=== PATIENT | male | born 1990 | race Two or more races ===

== ENCOUNTER 2024-02-21 15:08 | Inpatient (IN) | payer MEDICAID, OTHER ==
[~2024-02-21] VITALS: Ht 170.2 cm; Wt 112.0 kg
--- NOTE | 2024-02-21 15:46 | ED.PDOC ---
History of Present Illness HPI Comments 33-year-old male brought in by private car after a reported possible syncopal episode. Patient states he has does not recall the event, however was at [employer] when he lost consciousness, then woke up on the floor. Noted is a bite wound on the left lateral aspect of his tongue. He denies any current dizziness, vision changes or focal weakness. He states he does feel shaky, and states he can not completely recall the last 2 days. He admits to typically drinking 2 tall cans and a few shots of alcohol every day. He is currently staying at a [facility] where they do not drink alcohol. He is not sure when he last drank alcohol. He denies any other injury from the fall. Chief Complaint: Withdrawal Time Seen by MD: 15:27 Primary Care Provider: none Allergies: Coded Allergies: NO KNOWN ALLERGIES (Unverified , 02/21/24) Mode of Arrival: Ambulatory Past Medical History PAST MEDICAL HISTORY: Asthma Surgical History (Other): Right knee Family History Family History: Reviewed,noncontributory to illness Social History Smoker: Non-Smoker Alcohol: Heavy Drugs: Denies Drug Use Lives In: Home All Other Systems: Reviewed and Negative (Comprehensive systems review obtained and negative except for what is stated in the HPI.) Physical Exam General Appearance: No Apparent Distress HEENT: PERRL/EOMI, Other (Irregular superficial left tongue bite wound) Neck: Full Range of Motion, Non-Tender, Normal Inspection, Supple Respiratory: Lungs Clear, No Accessory Muscle Use, No Respiratory Distress, Normal Breath Sounds Cardiovascular: No Edema, No JVD, Tachycardia Breast Exam: Deferred Gastrointestinal: Non Tender, Soft Genitalia: Deferred Pelvic: Deferred Rectal: Deferred Extremities: Normal inspection, Normal range of motion, Non-tender, No pedal edema Neurologic: Alert (Oriented x4), Normal Affect, Normal Mood, Other (Ambulatory without difficulty. No gross focal deficit. Appears tremulous.) Cerebellar Function: NOT DONE Reflexes: NOT DONE Skin: Dry, Normal Color, Warm Lymphatic: NOT DONE Was a procedure done? Was a procedure done?: No EKG EKG : Comments Sinus rhythm, rate 84, normal intervals, normal axis, incomplete right bundle- branch block, no ST/T changes. Differential Dx Considerations may include: Syncope, seizure, alcohol withdrawal, electrolyte imbalance, hypovolemia, CVA, TIA, intracranial hemorrhage, skull fracture, drug/alcohol intoxication, among others X-Ray, Labs, Meds, VS Vital Signs Date Time Temp Pulse Resp B/P (MAP) Pulse Ox O2 Delivery O2 Flow Rate FiO2 02/21/24 21:18 84 02/21/24 19:30 90 18 97 Room Air* 0 21 02/21/24 19:30 98.1 90 18 120/79 (93) 97 98.1 02/21/24 16:07 91 16 101/70 (80) 98 02/21/24 15:58 91 16 99 Room Air* 0 21 02/21/24 15:29 98.0 122 22 122/92 (102) 94 Lab Test 02/21/24 17:40 02/21/24 16:50 02/21/24 15:50 02/21/24 15:24 Range/Units Urine Color Yellow Yellow Urine Clarity Clear Clear Urine pH 6.0 5.0-9.0 Urine Specific [place] 1.015 1.001-1.035 Urine Protein 1+ H Negative Urine Ketones 1+ H Negative Urine Blood 1+ H Negative /uL Urine Nitrite Negative Negative Urine Bilirubin Negative Negative Urine Urobilinogen Normal Negative mg/dL Urine Leukocyte Esterase Negative Negative /uL Urine RBC 2 0 - 3 /hpf Urine WBC 1 0 - 3 /hpf Urine Squamous Epithelial Cells Few <5 /hpf Urine Bacteria None seen None Seen /hpf Urine Hyaline Casts Few 0 - 2 /lpf Urine Mucus Few None Seen Urine Glucose Normal Normal mg/dL Urine Opiates Screen Neg NEGATIVE Urine Fentanyl Screen Neg NEGATIVE Urine Barbiturates Screen Neg NEGATIVE Urine Phencyclidine Screen Neg NEGATIVE Urine Amphetamines Screen Neg NEGATIVE Urine Benzodiazepines Screen Neg NEGATIVE Urine Cocaine Screen Neg NEGATIVE Urine Cannabinoids Screen Neg NEGATIVE Troponin I High Sensitivity 47 36 </=54 ng/L White Blood Count 7.0 4.4-10.8 10^3/uL Red Blood Count 4.93 4.5-5.90 10^6/uL Hemoglobin 16.2 13.5-17.5 g/dL Hematocrit 45.8 41.0-53.0 % Mean Corpuscular Volume 92.9 80.0-100.0 fL Mean Corpuscular Hemoglobin 32.9 H 28.0-32.0 pg Mean Corpuscular Hemoglobin Concent 35.4 32.0-36.0 g/dL Red Cell Distribution Width 14.3 11.8-14.3 % Platelet Count 116 L 140-450 10^3/uL Mean Platelet Volume 7.6 6.9-10.8 fL Neutrophils (%) (Auto) 83.4 H 37.0-80.0 % Lymphocytes (%) (Auto) 7.8 L 10.0-50.0 % Monocytes (%) (Auto) 8.5 0.0-12.0 % Eosinophils (%) (Auto) 0.2 0.0-7.0 % Basophils (%) (Auto) 0.1 0.0-2.0 % Neutrophils # (Auto) 5.9 1.6-8.6 10 ^3/uL Lymphocytes # (Auto) 0.5 0.4-5.4 10 ^3/uL Monocytes # (Auto) 0.6 0-1.3 10 ^3/uL Eosinophils # (Auto) 0 0-0.8 10 ^3/uL Basophils # (Auto) 0 0-0.2 10 ^3/uL Nucleated Red Blood Cells 0.2 % Sodium Level 131 L 136-145 mmol/L Potassium Level 3.8 3.5-5.1 mmol/L Chloride Level 96 L 98-107 mmol/L Carbon Dioxide Level 24 20-31 mmol/L Anion Gap 11 5-15 Blood Urea Nitrogen 15 9-23 mg/dL Creatinine 1.07 0.700-1.30 mg/dL Glomerular Filtration Rate Calc 93 >90 mL/min BUN/Creatinine Ratio 14.0 10.0-20.0 Serum Glucose 115 H 74-106 mg/dL Calcium Level 10.8 H 8.7-10.4 mg/dL Plasma/Serum Blood Alcohol 5.1 <10 mg/dL POC Glucose 178 H 70-106 mg/dl Current Medications Medications (Trade) Dose Ordered Sig/Nisha Route Start Time Stop Time Status Last Admin Sodium Chloride 1,000 ml @ 1,000 mls/hr Q1H ONCE IV 02/21/24 15:30 02/21/24 16:29 DC 02/21/24 15:53 Lorazepam (Ativan Inj) 2 mg ONCE ONCE IV 02/21/24 15:30 02/21/24 15:50 DC 02/21/24 15:52 Chlordiazepoxide HCl (Librium Capsule) 50 mg ONCE ONCE PO 02/21/24 15:30 02/21/24 15:50 DC 02/21/24 15:52 Acetaminophen/ Hydrocodone Bitart ([place] 5/325MG Tab) 1 tab ONCE ONCE PO 02/21/24 15:30 02/21/24 15:50 DC 02/21/24 15:52 Folic Acid 1 mg/ Multivitamins 10 ml/Magnesium Sulfate 8 meq/ Thiamine HCl 100 mg/Dextrose 1,013.2 ml @ 500.001 mls/hr O ONCE INJ 02/21/24 15:30 02/21/24 17:31 DC 02/21/24 17:05 [place] [id number] Ph: [phone] DIAGNOSTIC IMAGING Diagnostic Imaging Report : [id number] Signed PATIENT: DENISE CLIFFORDCCT: [id number] UNIT: [id number] : 1990 LOC: ER ROOM / BED: / AGE / SEX: 33 / M ADM STATUS: REG ER SERVICE [id number] ORDERING PHYSICIAN: SHELLI SOLITARIO MD PROCEDURE(s): HWOCT - HEAD WITHOUT CONTRAST REASON: syncope vs sz ORDER NUMBER(s): [id number], ACCESSION NUMBER(s): [id number] EXAM: CT HEAD WITHOUT CONTRAST INDICATION: syncope vs sz TECHNIQUE: CT of the head without intravenous contrast. Radiation Dose Information: CT Dose: CTDI volume is 25 mGy. Dose-length product is 250 mGy*cm The dose indicators for CT are the volume Computed Tomography (CT) Dose Index (CTDIvol) and the Dose Length Product (DLP), and are measured in units of mGy and mGy-cm, respectively. These indicators are not patient dose, but values generated from the CT scanner acquisition factors. The report includes radiation exposure data for exposures received during this examination. COMPARISON: None FINDINGS: There is no evidence of acute intracranial hemorrhage, extra-axial collection, mass effect, midline shift, herniation or hydrocephalus. The ventricles, sulci and cisterns are age appropriate. The sue-white differentiation is intact. Patchy periventricular and subcortical white matter hypoattenuation is nonspecific but may be related to small vessel ischemic disease. The visualized paranasal sinuses and mastoid air cells are clear. The surrounding soft tissues and osseous structures are unremarkable. IMPRESSION: No acute intracranial abnormality. ATED BY: JONNY BAIN MD DICTATED DATE/TIME: 02/21/241600 SIGNED BY: JONNY BAIN MD SIGNED DATE/TIME: 02/21/241600 CC: [place] [address] Ph: [phone] DIAGNOSTIC IMAGING Diagnostic Imaging Report : [id number] Signed PATIENT: DENISE CLIFFORDCCT: [id number] UNIT: [id number] : 1990 LOC: ER ROOM / BED: / AGE / SEX: 33 / M ADM STATUS: REG ER SERVICE [id number] ORDERING PHYSICIAN: SHELLI SOLITARIO MD PROCEDURE(s): FAC2C - MAXILLOFACIAL WITHOUT REASON: FALL ORDER NUMBER(s): [id number], ACCESSION NUMBER(s): [id number] CT MAXILLOFACIAL WITHOUT INDICATION: FALL EXAM DATE: 02/21/2024 03:38 PM COMPARISON: None RADIATION DOSE: CTDIvol: 56 mGy, DLP: 910 mGy*cm PROCEDURE: Using the CT scanner, contiguous noncontrast scans were obtained from above the orbital rims to below the mandible. Coronal and sagittal reformatted images were then generated. All CT scans at this medical facility are performed using dose modulation techniques as appropriate to a performed exam including the following: Automated exposure control was utilized; adjustment of the MA and/or KV according to patient size; and use of iterative reconstruction technique. FINDINGS: The facial bones, including the orbits and paranasal sinuses are intact without evidence of fracture. Right maxillary sinus mucosal thickening. The paranasal sinuses, mastoid air cells and middle ear cavities are aerated. The orbital contents are normal. The soft tissues of the face are unremarkable. IMPRESSION: Right maxillary sinus mucosal thickening. No acute fracture of the maxillofacial region. ATED BY: RENAN MACKEY MD DICTATED DATE/TIME: 02/21/241604 SIGNED BY: RENAN MACKEY MD SIGNED DATE/TIME: 02/21/241604 CC: X-Ray, Labs, Meds, VS Comment 33-year-old male with a history of asthma and alcohol dependence presenting with a possible syncopal episode versus seizure. Vitals remarkable for heart rate 122, respiratory rate 22, BP 122/92 Exam remarkable for left tongue superficial irregular bite wound and tremulousness Rhythm strip independently interpreted by me: Sinus tach, rate 122, no ectopy. CT head unremarkable CT maxillofacial no acute fracture CBC remarkable for platelets 116, basic metabolic panel remarkable for sodium 131, chloride 96, troponin negative x2, alcohol 5.1, drug screen pending Patient treated with the following in the ED: 1 L 0.9 normal saline IV bolus, banana bag IV, Ativan 2 mg IV, Librium 50 mg p.o. On re-evaluation, patient is no longer tremulous. Heart rate has improved, other vitals are stable. He is not in distress and is neurologically intact. Plan is to admit the patient for treatment of alcohol withdrawal. Time of 1ST Reevaluation: 18:21 Reevaluation 1ST: Improved Patient Education/Counseling: Diagnosis, Treatment Family Education/Counseling: No Family Present Departure 1 Departure Time of Disposition: 18:21 Impression: Primary Impression: Alcohol withdrawal seizure Qualified Codes: F10.939 - Alcohol use, unspecified with withdrawal, unspe cified; R56.9 - Unspecified convulsions Disposition: 09 ADMITTED INPATIENT Admit to: Tele Condition: Guarded Critical Care Note Critical Care Time?: Yes (35 min-critical care time only) Critical care comment: Critical care time including multiple bedside re-evaluations, review of lab and imaging studies, and discussion of the case with the admitting provider. Patient is high risk for neurologic decompensation. Stability Stability form required: No Heart Score Heart Score: Heart Score Response (Comments) Value History N/A 0 EKG N/A 0 Age N/A 0 Risk Factors N/A 0 Troponin N/A 0 Total 0 I personally scribed for SHELLI SOLITARIO MD ([email or web address]) on 02/21/24 at 16:10. Electronically submitted by Velma Godoy ([email or web address]). I personally scribed for SHELLI SOLITARIO MD ([email or web address]) on 02/21/24 at 16:11. Electronically submitted by Velma Godoy ([email or web address]). SHELLI SOLITARIO MD Feb 21, 2024 15:46
[2024-02-21] MEDS: HYDROcodone-ACET 5/325MG TAB PO ONE (15:52)
[2024-02-21] MEDS: chlordiazePOXIDE HCL 25 MG CAP PO ONE (15:52)
[2024-02-21] MEDS: LORazepam 2MG/ML-1ML VIAL IV ONE (15:52)
[2024-02-21] MEDS: SODIUM CHLORIDE 0.9% 1,000 ML IV ONE (15:53)
[2024-02-21 15:58] VITALS: PULSE 91; RESP 16; O2SAT 99
--- NOTE | 2024-02-21 16:03 | DVH ---
EXAM: CT HEAD WITHOUT CONTRAST INDICATION: syncope vs sz TECHNIQUE: CT of the head without intravenous contrast. Radiation Dose Information: CT Dose: CTDI volume is 25 mGy. Dose-length product is 250 mGy*cm The dose indicators for CT are the volume Computed Tomography (CT) Dose Index (CTDIvol) and the Dose Length Product (DLP), and are measured in units of mGy and mGy-cm, respectively. These indicators are not patient dose, but values generated from the CT scanner acquisition factors. The report includes radiation exposure data for exposures received during this examination. COMPARISON: None FINDINGS: There is no evidence of acute intracranial hemorrhage, extra-axial collection, mass effect, midline s hift, herniation or hydrocephalus. The ventricles, sulci and cisterns are age appropriate. The sue-white differentiation is intact. Patchy periventricular and subcortical white matter hypoattenuation is nonspecific but may be related to small vessel ischemic disease. The visualized paranasal sinuses and mastoid air cells are clear. The surrounding soft tissues and osseous structures are unremarkable. IMPRESSION: No acute intracranial abnormality.
--- NOTE | 2024-02-21 16:08 | DVH ---
CT MAXILLOFACIAL WITHOUT INDICATION: FALL EXAM DATE: 02/21/2024 03:38 PM COMPARISON: None RADIATION DOSE: CTDIvol: 56 mGy, DLP: 910 mGy*cm PROCEDURE: Using the CT scanner, contiguous noncontrast scans were obtained from above the orbital ri ms to below the mandible. Coronal and sagittal reformatted images were then generated. All CT scans at this medical facility are performed using dose modulation techniques as appropriate t o a performed exam including the following: Automated exposure control was utilized; adjustment of th e MA and/or KV according to patient size; and use of iterative reconstruction technique. FINDINGS: The facial bones, including the orbits and paranasal sinuses are intact without evidence of fracture. Right maxillary sinus mucosal thickening. The paranasal sinuses, mastoid air cells and mid dle ear cavities are aerated. The orbital contents are normal. The soft tissues of the face are unre markable. IMPRESSION: Right maxillary sinus mucosal thickening. No acute fracture of the maxillofacial region.
[2024-02-21 16:27] LABS: Basophils # (auto) 0 10 ^3/uL (0-0.2); Basophils % (auto) 0.1 % (0.0-2.0); Eosinophils # (auto) 0 10 ^3/uL (0-0.8); Eosinophils % (auto) 0.2 % (0.0-7.0); Hematocrit 45.8 % (41.0-53.0); Hemoglobin 16.2 g/dL (13.5-17.5); Lymphocytes # (auto) 0.5 10 ^3/uL (0.4-5.4); Lymphocytes % (auto) 7.8 % (10.0-50.0); Mean Corpuscular Hemoglobin 32.9 pg (28.0-32.0); Mean Corpuscular Hgb Conc. 35.4 g/dL (32.0-36.0); Mean Corpuscular Volume 92.9 fL (80.0-100.0); Monocytes # (auto) 0.6 10 ^3/uL (0-1.3); Monocytes % (auto) 8.5 % (0.0-12.0); Neutrophils # (auto) 5.9 10 ^3/uL (1.6-8.6); Neutrophils % (auto) 83.4 % (37.0-80.0); Nucleated Red Blood Cells % 0.2 %; Platelet Count (auto) 116 10^3/uL (140-450); Red Blood Cells 4.93 10^6/uL (4.5-5.90); Red Cell Distribution Width 14.3 % (11.8-14.3)
[2024-02-21 16:30] LABS: Potassium 3.8 mmol/L (3.5-5.1)
[2024-02-21 16:31] LABS: Anion Gap 11 (5-15); Carbon Dioxide 24 mmol/L (20-31)
[2024-02-21 16:37] LABS: Blood Urea Nitrogen 15 mg/dL (9-23); Calcium 10.8 mg/dL (8.7-10.4); Chloride 96 mmol/L (98-107); Glucose 115 mg/dL (74-106); Sodium 131 mmol/L (136-145)
[2024-02-21] MEDS: FOLIC ACID 1 MG, MULTIPLE VITAMIN 10 ML, MAGNESIUM SULF SDV 50% 8 MEQ, THIAMINE INJ 100... INJ ONE (17:05)
[2024-02-21 19:30] VITALS: PULSE 90; RESP 18; O2SAT 97
[2024-02-21 19:45] LABS: Urine Bacteria None Seen /hpf (None Seen)
[2024-02-21 20:35] LABS: Benzodiazephine Screen, Urine Neg (NEGATIVE)
[2024-02-21 20:36] LABS: Opiate Scree,Urine Neg (NEGATIVE)
[2024-02-21 20:39] LABS: Amphetamine Screen, Urine Neg (NEGATIVE); Barbiturate Scree,Urine Neg (NEGATIVE); Cannabinoid Screen, Urine Neg (NEGATIVE); Cocaine Screen, Urine Neg (NEGATIVE); Phencyclidine Screen, Urine Neg (NEGATIVE)
[2024-02-21 20:40] LABS: Urine Blood 1+ /uL (Negative); Urine Clarity Clear (Clear); Urine Color Yellow (Yellow); Urine Hyaline Cast FEW /lpf (0 - 2); Urine Mucus FEW (None Seen); Urine Protein, UAD 1+ (Negative); Urine Specific Gravity 1.015 (1.001-1.035); Urine Squamous Epithelial Cell FEW /hpf (<5); Urine Urobilinogen Normal (Negative); Urine WBC 1 /hpf (0 - 3)
[2024-02-21 22:03] LABS: Albumin 4.8 g/dL (3.2-4.8); Total Protein 7.4 g/dL (5.7-8.2)
[2024-02-21 22:14] LABS: Bilirubin, Direct 0.5 mg/dL (<0.3); Bilirubin, Total 1.3 mg/dL (0.2-1.0)
[2024-02-21] MEDS: FOLIC ACID 1 MG TAB PO ONE (22:17)
--- NOTE | 2024-02-21 22:37 | DVH ---
ABDOMINAL ULTRASOUND CLINICAL HISTORY: Alcoholic, thrombocytopenia TECHNIQUE: Multiple grayscale and color Doppler ultrasound images were obtained of the abdomen. WID: COMPARISON: None FINDINGS: Liver and Biliary System: Increased echogenicity of the liver increased in size measuring 19 cm. N o focal hepatic observations. No intrahepatic bile duct dilatation. The common duct is not visualized . The gallbladder contains sludge. There is no cholelithiasis or gallbladder wall thickening. Son ographic Cuello's sign is negative. Pancreas: Is not well seen due to overlying bowel gas. Kidneys: The right kidney is 13.4 cm. No hydronephrosis, increased echogenicity, shadowing stone, o r focal lesion. IMPRESSION: 1. Mild hepatomegaly with diffuse hepatic steatosis. 2. Gallbladder sludge.
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
[2024-02-22] MEDS: LORazepam 2MG/ML-1ML VIAL IV PRN (00:27)
[2024-02-22] MEDS: chlordiazePOXIDE HCL 25 MG CAP PO SCH (00:28)
[2024-02-22] MEDS: SODIUM CHLORIDE 0.9% 1,000 ML IV ONE ×2 (03:15→14:15)
[2024-02-22] MEDS: LIDOCAINE VISCOUS 2% 15ML UD MT ONE (03:17)
[2024-02-22 06:52] LABS: Basophils # (auto) 0 10 ^3/uL (0-0.2); Basophils % (auto) 0.2 % (0.0-2.0); Eosinophils # (auto) 0 10 ^3/uL (0-0.8); Eosinophils % (auto) 0.4 % (0.0-7.0); Hematocrit 44.5 % (41.0-53.0); Hemoglobin 15.5 g/dL (13.5-17.5); Lymphocytes # (auto) 0.9 10 ^3/uL (0.4-5.4); Mean Corpuscular Hgb Conc. 34.7 g/dL (32.0-36.0); Mean Corpuscular Volume 95.1 fL (80.0-100.0); Monocytes # (auto) 0.7 10 ^3/uL (0-1.3); Monocytes % (auto) 9.1 % (0.0-12.0); Neutrophils % (auto) 78.3 % (37.0-80.0); Nucleated Red Blood Cells % 0.1 %; Platelet Count (auto) 103 10^3/uL (140-450); Red Blood Cells 4.68 10^6/uL (4.5-5.90); Red Cell Distribution Width 14.6 % (11.8-14.3); White Blood Cell 7.6 10^3/uL (4.4-10.8)
[2024-02-22 07:03] LABS: Albumin 4.4 g/dL (3.2-4.8); Alkaline Phosphatase 83 U/L (46-116); Anion Gap 10 (5-15); BUN/Creatinine Ratio 9.6 (10.0-20.0); Calcium 9.9 mg/dL (8.7-10.4); Carbon Dioxide 25 mmol/L (20-31); Chloride 101 mmol/L (98-107); Glucose 84 mg/dL (74-106); Sodium 136 mmol/L (136-145); Total Protein 7.1 g/dL (5.7-8.2)
[2024-02-22 07:05] LABS: Alanine Aminotransferase 83 U/L (7-40); Aspartate Aminotransferase 144 U/L (13-40); Bilirubin, Total 1.6 mg/dL (0.2-1.0); Blood Urea Nitrogen 9 mg/dL (9-23); Creatine Kinase IFCC 1196 U/L (46-171)
[2024-02-22 07:35] VITALS: RESP 15
[2024-02-22] MEDS: CHLORHEXIDINE 0.12% ORAL rinse 473ML MT SCH (10:00)
[2024-02-22] MEDS: MAGIC MOUTHWASH 55 ML SUSP MT PRN (10:31)
[2024-02-22] MEDS: POTASSIUM EFFERVESENT TAB 25 MEQ PO ONE (10:36)
[2024-02-22] MEDS: methylPREDNISolone SOD SUCC 40 MG/ML VL IV ONE (14:45)
[2024-02-22] MEDS: FOLIC ACID 1 MG, MULTIPLE VITAMIN 10 ML, MAGNESIUM SULF SDV 50% 8 MEQ, THIAMINE INJ 100... INJ SCH (18:00)
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
[2024-02-22 19:25] VITALS: RESP 15
[2024-02-23] VITALS (8 sets, daily range): BP systolic 19–148; BP diastolic 64–90; PULSE 59–98; RESP 14–20; TEMP 97.9–99.6; O2SAT 94–98
[2024-02-23] MEDS: SODIUM CHLORIDE 0.9% 1,000 ML IV ONE (01:30)
[2024-02-23] MEDS ORDERED: IBUP-1454 PO (06:37)
[2024-02-23] MEDS ORDERED: ALBU108A5 INH (06:37)
[2024-02-23 07:55] LABS: Albumin 4.2 g/dL (3.2-4.8); Alkaline Phosphatase 79 U/L (46-116); Anion Gap 8 (5-15); BUN/Creatinine Ratio 6.7 (10.0-20.0); Calcium 9.6 mg/dL (8.7-10.4); Carbon Dioxide 27 mmol/L (20-31); Chloride 102 mmol/L (98-107); Glucose 88 mg/dL (74-106); Sodium 137 mmol/L (136-145)
[2024-02-23 07:56] LABS: Alanine Aminotransferase 81 U/L (7-40); Aspartate Aminotransferase 120 U/L (13-40); Bilirubin, Total 1.3 mg/dL (0.2-1.0); Blood Urea Nitrogen 6 mg/dL (9-23); Creatine Kinase IFCC 593 U/L (46-171); Potassium 3.2 mmol/L (3.5-5.1); Total Protein 6.9 g/dL (5.7-8.2)
[2024-02-23] MEDS: LIDOCAINE VISCOUS 2% 15ML UD MT PRN (08:40)
[2024-02-23] MEDS: POTASSIUM CHLORIDE 60 MEQ, LIDOCAINE 1% (LOCAL ANESTH.) 6 ML in SODIUM CHL 0.9% 500 ML IV ONE (09:22)
[2024-02-23] MEDS: HYDROcodone-ACET 5/325MG TAB PO PRN (12:27)
--- NOTE | 2024-02-23 20:57 | DVHPNRES ---
Progress Note Date Seen: Feb 23, 2024 Resident Creating Document: MICKEY ACE RESIDENT Has the PT tested + for MRSA If YES, has PT been informed?: No Medical Necessity Reason Pt with a Central, PICC or Fol: No Medical Necessity Reason Alcohol withdrawal seizure tongue bitting Subjective Review of Systems This is a 33-year-old male, with a past medical history of alcohol abuse was brought to the hospital after an episode of seizure. Per the patient, he use to drink heavily. He stopped taking alcohol 2 weeks ago and joined alcohol cessation program at a [employer]. According to the patient, he has not had a drink in about 2 weeks and yesterday patient had a seizure activity involving falling to the ground and hitting his chin on a concrete. He also said he bit his tongue. When patient was awoken or when he regained consciousness he was confused we will dizzy and those blood in his mouth. Patient also reports of right hand numbness and bilateral leg pain. Otherwise patient denies nausea, vomiting, fever, focal weakness, visual changes and any head trauma. At the time of my evaluation today, patient was lying in bed easily awoken but he was drooling. He mouth full of blood and blood smelling. Patient was unable to speak clearly because his tongue was swollen. The conversations were kind of yes or no with him nodding his head. When he tries to communicate he has having too much pain with every speech production. Lab data showed normal WBC, Na:131, CK:401--> 1196 PN 02/23/2024 Patient is seen and examined at the bedside today. He is looking better compared to yesterday. The tongue swelling is going down. Patient was given lidocaine this viscous mouth wash, oral chlorhexidine. Lab shows CK 539. Will continue with pureed and monitor his progress. To rule out true seizures, I have consulted the neurology for evaluation. Objective vital signs Vital Sign Date Time Temp Pulse Resp B/P (MAP) Pulse Ox O2 Delivery O2 Flow Rate FiO2 02/23/24 16:26 98.3 82 16 115/66 (82) 98 98.3 02/23/24 08:00 Nasal Cannula* 1 24 Total Intake and Output 02/22/24 02/22/24 02/23/24 15:00 23:00 07:00 Intake Total 0 ml Output Total 0 ml Balance 0 ml medications Current Medications Medications Dose Ordered Sig/Nisha Route Start Time Stop Time Status Last Admin Dose Admin Lorazepam 1 mg Q2HPRN PRN IV 02/21/24 21:30 02/23/24 03:08 1 MG Chlordiazepoxide HCl 50 mg Q6HR PO 02/22/24 00:00 02/23/24 17:32 50 MG Al Hydrox/Mg Hydrox/Simethicone 5 ml QID PRN MT 02/22/24 01:00 02/22/24 13:59 5 ML Lidocaine HCl 10 ml Q4HP PRN MT 02/22/24 02:15 02/23/24 08:40 10 ML Chlorhexidine Gluconate 15 ml Q12HR MT 02/22/24 10:00 02/23/24 09:22 15 ML Folic Acid 1 mg/ Multivitamins 10 ml/Magnesium Sulfate 8 meq/ Thiamine HCl 100 mg/Dextrose 1,013.2 ml @ 125.001 mls/hr DAILY@1800 INJ 02/22/24 18:00 02/23/24 17:36 125.001 MLS/HR Acetaminophen/ Hydrocodone Bitart 1 tab Q4HPRN PRN PO 02/22/24 18:45 02/23/24 17:39 1 TAB Examination General Appearance: Alert, Oriented X3, Cooperative, Moderate-severe acute distress Face: --Tongue: swollen, blood difficulty with eating blood stain and smells--> slightly better HEENT: Atraumatic, PERRLA, EOMI, Mucous membrane moist/pink Respiratory: Clear to auscultation, Normal air movement Cardiovascular: Regular rate, Normal S1, Normal S2, No murmurs, no chest wall tenderness Abdominal: NO distention, no tenderness, bowel sounds present, no scars noted Extremities: No clubbing, No cyanosis, No edema, Normal pulses, No tenderness/swelling Skin: No rashes, No breakdown, No significant lesion Neuro: Normal gait, Normal speech, Strength at 5/5 X4 ext, Normal tone, Sensation intact, Cranial nerves 3-12 NL, Reflexes 2+ Psych/Mental Status: Mental status NL, Mood NL laboratory and microbiology Laboratory Tests 02/23/24 06:55 02/22/24 06:19 Test 02/23/24 06:55 Range/Units Serum Glucose 88 74-106 mg/dL Problem List/Assessment/Plan Problem List/Assessment/Plan Seizure, likely due to alcohol withdrawal Tongue bite Head CT scan shows no acute intracranial abnormalities Seizure precaution Banana bag Ativan p.r.n. Local chlorhexidine and lidocaine if the tongue is still swollen, give solumedrol 25mg 1x, or pepcid 20 mg 1x or claritin 10mg 1x pain medication monitor closely for repeat seizure Neurology consult Possible alcohol withdrawal Alcohol use disorder Serum alcohol level is raised at 5.1 CIWA score is 7 Ativan p.r.n. Librium p.r.n. Possible chronic sinusitis CT scan shows, Right maxillary sinus mucosal thickening Rhabdomyolysis Creatinine kinase:401--> 1196--> 539 --> IV fluid N/S125ml/hr --> Monitor CK --> Monitor cr level Current smoker -->20 pack years --> Patient consulted for smoking cessation for more than 19 minutes Thrombocytopenia Transaminitis Gallbladder sludge Hepatomegaly and Hepatic steatosis Liver ultrasound shows mild hepatomegaly with diffuse hepatic steatosis, and gallbladder sludge Mild hyponatremia, monitoring Hypochloremia, monitoring hypokalemia --> Replaced --> check blood work in the AM Obesity Plan: Continue current regime Solumedrol [place] renewed DIET: puree diet CODE STATUS: Full DISPOSITION: Telemetry Goal of care discussed for more than 30 minutes He is in plan discussed with Dr. Young Plan discussed with: Patient My Orders My Orders Orders - MICKEY ACE Procedure Category Date Status Time Creatine Kinase LAB 02/24/24 Verified 04:00 Comprehensive LAB 02/24/24 Verified Metabolic Panel 04:00 * Neurology Consult CONS 02/23/24 Transmitted 12:37 Date of Service: Feb 23, 2024 Billing Provider: DEREK YOUNG MD Common Visit Codes: [id number] INP/OBS CARE(HIGH) MICKEY ACE Feb 23, 2024 20:57 DEREK YOUNG MD Feb 23, 2024 21:34
[2024-02-23] MEDS: methylPREDNISolone SOD SUCC 40 MG/ML VL IV ONE (22:18)
[2024-02-24] VITALS (7 sets, daily range): BP systolic 111–135; BP diastolic 66–83; PULSE 70–98; RESP 17–20; TEMP 98–98.6; O2SAT 94–99
--- NOTE | 2024-02-24 07:40 | ECG ---
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
[2024-02-24 08:02] LABS: Albumin 4.7 g/dL (3.2-4.8); Alkaline Phosphatase 80 U/L (46-116); Anion Gap 10 (5-15); Carbon Dioxide 24 mmol/L (20-31); Chloride 103 mmol/L (98-107); Potassium 4.8 mmol/L (3.5-5.1); Sodium 137 mmol/L (136-145); Total Protein 7.3 g/dL (5.7-8.2)
[2024-02-24 08:03] LABS: Alanine Aminotransferase 89 U/L (7-40); Blood Urea Nitrogen 7 mg/dL (9-23); Calcium 10.6 mg/dL (8.7-10.4); Creatine Kinase IFCC 312 U/L (46-171); Glucose 130 mg/dL (74-106)
[2024-02-24 08:13] LABS: Aspartate Aminotransferase 107 U/L (13-40)
--- NOTE | 2024-02-24 18:11 | DVHPNRES ---
Progress Note Date Seen: Feb 24, 2024 Resident Creating Document: MICKEY ACE RESIDENT Has the PT tested + for MRSA If YES, has PT been informed?: No Medical Necessity Reason Pt with a Central, PICC or Fol: No Medical Necessity Reason Alcohol withdrawal induced seizure Subjective Review of Systems This is a 33-year-old male, with a past medical history of alcohol abuse was brought to the hospital after an episode of seizure. Per the patient, he use to drink heavily. He stopped taking alcohol 2 weeks ago and joined alcohol cessation program at a [employer]. According to the patient, he has not had a drink in about 2 weeks and yesterday patient had a seizure activity involving falling to the ground and hitting his chin on a concrete. He also said he bit his tongue. When patient was awoken or when he regained consciousness he was confused we will dizzy and those blood in his mouth. Patient also reports of right hand numbness and bilateral leg pain. Otherwise patient denies nausea, vomiting, fever, focal weakness, visual changes and any head trauma. At the time of my evaluation today, patient was lying in bed easily awoken but he was drooling. He mouth full of blood and blood smelling. Patient was unable to speak clearly because his tongue was swollen. The conversations were kind of yes or no with him nodding his head. When he tries to communicate he has having too much pain with every speech production. Lab data showed normal WBC, Na:131, CK:401--> 1196 PN 02/23/2024 Patient is seen and examined at the bedside today. He is looking better compared to yesterday. The tongue swelling is going down. Patient was given lidocaine this viscous mouth wash, oral chlorhexidine. Lab shows CK 539. Will continue with pureed and monitor his progress. To rule out true seizures, I have consulted the neurology for evaluation. PN: 02/24/2024: Patient is seen and examined at the bedside. He is doing much much better. Tongue swelling is gradually improving and he was able to eat breakfast after using the lidocaine was discussed and usually also using the oral chlorhexidine to wash his month. Overall he is heading in a right direction. Probably discharge him tomorrow. Objective vital signs Vital Sign Date Time Temp Pulse Resp B/P (MAP) Pulse Ox O2 Delivery O2 Flow Rate FiO2 02/24/24 16:41 98.0 71 20 119/66 (83) 95 98.0 02/24/24 08:00 Room Air* 0 21 Total Intake and Output 02/23/24 02/23/24 02/24/24 15:00 23:00 07:00 Intake Total 1200 ml 1110 ml Output Total 400 ml Balance 800 ml 1110 ml medications Current Medications Medications Dose Ordered Sig/Nisha Route Start Time Stop Time Status Last Admin Dose Admin Lorazepam 1 mg Q2HPRN PRN IV 02/21/24 21:30 02/23/24 03:08 1 MG Chlordiazepoxide HCl 50 mg Q6HR PO 02/22/24 00:00 02/24/24 12:20 50 MG Al Hydrox/Mg Hydrox/Simethicone 5 ml QID PRN MT 02/22/24 01:00 02/22/24 13:59 5 ML Lidocaine HCl 10 ml Q4HP PRN MT 02/22/24 02:15 02/23/24 08:40 10 ML Chlorhexidine Gluconate 15 ml Q12HR MT 02/22/24 10:00 02/24/24 10:04 15 ML Folic Acid 1 mg/ Multivitamins 10 ml/Magnesium Sulfate 8 meq/ Thiamine HCl 100 mg/Dextrose 1,013.2 ml @ 125.001 mls/hr DAILY@1800 INJ 02/22/24 18:00 02/23/24 17:36 125.001 MLS/HR Acetaminophen/ Hydrocodone Bitart 1 tab Q4HPRN PRN PO 02/22/24 18:45 02/24/24 16:58 1 TAB Examination Examination General Appearance: Alert, Oriented X3, Cooperative Face: --Tongue: swollen, blood. blood stain and smells. gradually healing wound HEENT: Atraumatic, PERRLA, EOMI, Mucous membrane moist/pink Respiratory: Clear to auscultation, Normal air movement Cardiovascular: Regular rate, Normal S1, Normal S2, No murmurs, no chest wall tenderness Abdominal: NO distention, no tenderness, bowel sounds present, no scars noted Extremities: No clubbing, No cyanosis, No edema, Normal pulses, No tenderness/swelling Skin: No rashes, No breakdown, No significant lesion Neuro: Normal gait, Normal speech, Strength at 5/5 X4 ext, Normal tone, Sensation intact, Cranial nerves 3-12 NL, Reflexes 2+ Psych/Mental Status: Mental status NL, Mood NL laboratory and microbiology Laboratory Tests 02/24/24 07:02 02/22/24 06:19 Test 02/24/24 07:02 Range/Units Serum Glucose 130 H 74-106 mg/dL Problem List/Assessment/Plan Problem List/Assessment/Plan Seizure, likely due to alcohol withdrawal Tongue bite Head CT scan shows no acute intracranial abnormalities Seizure precaution Banana bag Ativan p.r.n. Local chlorhexidine and lidocaine if the tongue is still swollen, give solumedrol 25mg 1x, or pepcid 20 mg 1x or claritin 10mg 1x pain medication monitor closely for repeat seizure Neurology consult Possible alcohol withdrawal Alcohol use disorder Serum alcohol level is raised at 5.1 CIWA score is 7 Ativan p.r.n. Librium p.r.n. Possible chronic sinusitis CT scan shows, Right maxillary sinus mucosal thickening Rhabdomyolysis Creatinine kinase:401--> 1196--> 539 --> IV fluid N/S 100ml/hr --> Monitor CK --> Monitor cr level Current smoker -->20 pack years --> Patient consulted for smoking cessation for more than 19 minutes Thrombocytopenia Transaminitis --> improving Gallbladder sludge Hepatomegaly and Hepatic steatosis Liver ultrasound shows mild hepatomegaly with diffuse hepatic steatosis, and gallbladder sludge Mild hyponatremia, monitoring Hypochloremia, monitoring hypokalemia--> improved --> Replaced --> check blood work in the AM Obesity Plan: Continue current regime Solumedrol [place] renewed DIET: puree diet; advance diet as can tolerate CODE STATUS: Full DISPOSITION: Telemetry Goal of care discussed for more than 30 minutes He is in plan discussed with Dr. Goode Plan discussed with: Patient Date of Service: Feb 24, 2024 Billing Provider: TRINA GOODE MD Common Visit Codes: [id number] INP/OBS CARE(HIGH) MICKEY ACE RESIDENT Feb 24, 2024 18:11 TRINA GOODE MD Feb 24, 2024 18:26
[2024-02-24] MEDS: SODIUM CHLORIDE 0.9% 1,000 ML IV SCH (18:43)
[2024-02-25] VITALS (8 sets, daily range): BP systolic 110–119; BP diastolic 66–83; PULSE 66–86; RESP 16–18; TEMP 97.4–98.6; O2SAT 94–100
[2024-02-25 07:16] LABS: Calcium 9.9 mg/dL (8.7-10.4); Chloride 106 mmol/L (98-107); Sodium 140 mmol/L (136-145)
[2024-02-25 07:17] LABS: Anion Gap 7 (5-15); Carbon Dioxide 27 mmol/L (20-31)
[2024-02-25 07:22] LABS: BUN/Creatinine Ratio 9.1 (10.0-20.0); Glucose 90 mg/dL (74-106)
[2024-02-25 07:24] LABS: Creatine Kinase IFCC 159 U/L (46-171)
[2024-02-25 07:25] LABS: Blood Urea Nitrogen 8 mg/dL (9-23)
--- NOTE | 2024-02-25 14:20 | DVHPN2 ---
Subjective The patient is seen and examined at bedside. The patient wanted to go home. The patient wanted to take a shower. The patient is waiting for neurologist to see him. Reviewed: Care Plan, H&P, Labs, Medications, Previous Orders, Radiology Changes from previous H/P or p: No Changes Objective Vitals Vital Signs Date Time Temp Pulse Resp B/P (MAP) Pulse Ox O2 Delivery O2 Flow Rate FiO2 02/25/24 13:00 98.6 86 18 119/83 (95) 97 98.6 02/25/24 08:00 Room Air* 0 21 Intake/Output Intake and Output 02/25/24 07:00 Intake Total 2390 ml Output Total 0 ml Balance 2390 ml Intake Oral 2390 ml Output Urine Total 0 ml # Voids 3 General Appearance: Alert, Oriented X3, Cooperative, No acute distress HEENT: Atraumatic, PERRLA, EOMI, Mucous membr. moist/pink Neck: Supple Lungs: Clear to auscultation, Normal air movement Cardiovascular: Regular rate, Normal S1, Normal S2, No murmurs, Gallops, Rubs Abdomen: Normal bowel sounds, Soft, No tenderness Neuro: Cranial nerves 3-12 NL Psych/Mental Status: Mental status NL Medications Current Medications Medications Dose Ordered Sig/Nisha Route Start Time Stop Time Status Last Admin Dose Admin Lorazepam 1 mg Q2HPRN PRN IV 02/21/24 21:30 02/23/24 03:08 1 MG Chlordiazepoxide HCl 50 mg Q6HR PO 02/22/24 00:00 02/25/24 11:40 50 MG Al Hydrox/Mg Hydrox/Simethicone 5 ml QID PRN MT 02/22/24 01:00 02/22/24 13:59 5 ML Lidocaine HCl 10 ml Q4HP PRN MT 02/22/24 02:15 02/23/24 08:40 10 ML Chlorhexidine Gluconate 15 ml Q12HR MT 02/22/24 10:00 02/25/24 09:17 15 ML Acetaminophen/ Hydrocodone Bitart 1 tab Q4HPRN PRN PO 02/22/24 18:45 02/25/24 08:01 1 TAB Sodium Chloride 1,000 ml @ 100 mls/hr Q10H IV 02/24/24 18:15 02/25/24 04:15 100 MLS/HR Laboratory Results Laboratory Tests 02/22/24 06:19 02/25/24 06:13 Chemistry Test 02/25/24 06:13 Calcium Level 9.9 mg/dL (8.7-10.4) Urinalysis Test 02/21/24 17:40 Urine Color Yellow (Yellow) Urine Clarity Clear (Clear) Urine pH 6.0 (5.0-9.0) Urine Specific [place] 1.015 (1.001-1.035) Urine Protein 1+ (Negative) H Urine Ketones 1+ (Negative) H Urine Blood 1+ /uL (Negative) H Urine Nitrite Negative (Negative) Urine Bilirubin Negative (Negative) Urine Urobilinogen Normal mg/dL (Negative) Urine Leukocyte Esterase Negative /uL (Negative) Urine RBC 2 /hpf (0 - 3) Urine WBC 1 /hpf (0 - 3) Urine Squamous Epithelial Cells Few /hpf (<5) Urine Bacteria None seen /hpf (None Seen) Urine Hyaline Casts Few /lpf (0 - 2) Urine Mucus Few (None Seen) Urine Glucose Normal mg/dL (Normal) Labs and/or images reviewed: Labs reviewed by me Assessment/Plan Assessment/Plan Seizure, likely due to alcohol withdrawal Tongue bite Head CT scan shows no acute intracranial abnormalities Seizure precaution Banana bag Ativan p.r.n. Local chlorhexidine and lidocaine if the tongue is still swollen, give solumedrol 25mg 1x, or pepcid 20 mg 1x or claritin 10mg 1x pain medication monitor closely for repeat seizure Neurology consult Possible alcohol withdrawal Alcohol use disorder Serum alcohol level is raised at 5.1 CIWA score is 7 Ativan p.r.n. Librium p.r.n. Possible chronic sinusitis CT scan shows, Right maxillary sinus mucosal thickening Rhabdomyolysis Creatinine kinase:401--> 1196--> 539 --> IV fluid N/S 100ml/hr --> Monitor CK --> Monitor cr level Current smoker -->20 pack years --> Patient consulted for smoking cessation for more than 19 minutes Thrombocytopenia Transaminitis --> improving Gallbladder sludge Hepatomegaly and Hepatic steatosis Liver ultrasound shows mild hepatomegaly with diffuse hepatic steatosis, and gallbladder sludge Mild hyponatremia, monitoring Hypochloremia, monitoring hypokalemia--> improved --> Replaced --> check blood work in the AM Obesity Plan: Continue current regime Solumedrol [place] renewed. The patient asking for more medication. I explained to him as this one we will continuing with [place] and wait for EEG to be done. Continuing to wait for neurologist to see the patient in to see if the patient needs any EEG. Discharge when cleared by neurologist. DIET: puree diet; advance diet as can tolerate CODE STATUS: Full DISPOSITION: Telemetry Plan discussed with: Patient Date of Service: Feb 25, 2024 Billing Provider: DEREK PELAYO MD Common Visit Codes: [id number] INP/OBS CARE(HIGH) DEREK PELAYO MD Feb 25, 2024 14:20
[2024-02-26 05:00] VITALS: BP 107/73; PULSE 62; RESP 18; TEMP 98.1; O2SAT 95
[2024-02-26 08:00] VITALS: PULSE 68; PULSE 77; RESP 18; O2SAT 99
[2024-02-26 09:17] VITALS: BP 129/83; PULSE 78; RESP 16; TEMP 97.5; O2SAT 97
[2024-02-26 13:00] VITALS: BP 130/93; PULSE 78; RESP 17; TEMP 98.4; O2SAT 98
--- NOTE | 2024-02-26 14:19 | DVHDSRES ---
Discharge Summary Date of Admission Resident Creating Document: MICKEY ACE RESIDENT Feb 21, 2024 at 21:11 Date of Discharge: Feb 26, 2024 Admitting Diagnosis Alcohol withdrawal seizures Labs/Diagnostic Data: Laboratory Results Test 02/25/24 06:13 02/24/24 07:02 02/22/24 14:50 02/22/24 06:19 Sodium Level 140 mmol/L (136-145) Potassium Level 4.0 mmol/L (3.5-5.1) Chloride Level 106 mmol/L (98-107) Carbon Dioxide Level 27 mmol/L (20-31) Anion Gap 7 (5-15) Blood Urea Nitrogen 8 mg/dL (9-23) Creatinine 0.88 mg/dL (0.700-1.30) Glomerular Filtration Rate Calc 115 mL/min (>90) BUN/Creatinine Ratio 9.1 (10.0-20.0) Serum Glucose 90 mg/dL (74-106) Calcium Level 9.9 mg/dL (8.7-10.4) Creatine Kinase 159 U/L (46-171) Total Bilirubin 1.0 mg/dL (0.2-1.0) Aspartate Amino Transferase (AST) 107 U/L (13-40) Alanine Aminotransferase (ALT) 89 U/L (7-40) Alkaline Phosphatase 80 U/L (46-116) Total Protein 7.3 g/dL (5.7-8.2) Albumin 4.7 g/dL (3.2-4.8) Folic Acid 16.51 ng/mL (>5.38) White Blood Count 7.6 10^3/uL (4.4-10.8) Red Blood Count 4.68 10^6/uL (4.5-5.90) Hemoglobin 15.5 g/dL (13.5-17.5) Hematocrit 44.5 % (41.0-53.0) Mean Corpuscular Volume 95.1 fL (80.0-100.0) Mean Corpuscular Hemoglobin 33.0 pg (28.0-32.0) Mean Corpuscular Hemoglobin Concent 34.7 g/dL (32.0-36.0) Red Cell Distribution Width 14.6 % (11.8-14.3) Platelet Count 103 10^3/uL (140-450) Mean Platelet Volume 7.6 fL (6.9-10.8) Neutrophils (%) (Auto) 78.3 % (37.0-80.0) Lymphocytes (%) (Auto) 12.0 % (10.0-50.0) Monocytes (%) (Auto) 9.1 % (0.0-12.0) Eosinophils (%) (Auto) 0.4 % (0.0-7.0) Basophils (%) (Auto) 0.2 % (0.0-2.0) Neutrophils # (Auto) 6.0 10 ^3/uL (1.6-8.6) Lymphocytes # (Auto) 0.9 10 ^3/uL (0.4-5.4) Monocytes # (Auto) 0.7 10 ^3/uL (0-1.3) Eosinophils # (Auto) 0 10 ^3/uL (0-0.8) Basophils # (Auto) 0 10 ^3/uL (0-0.2) Nucleated Red Blood Cells 0.1 % Magnesium Level 2.3 mg/dL (1.6-2.6) Test 02/21/24 17:40 02/21/24 16:50 02/21/24 15:50 02/21/24 15:24 Urine Color Yellow (Yellow) Urine Clarity Clear (Clear) Urine pH 6.0 (5.0-9.0) Urine Specific [place] 1.015 (1.001-1.035) Urine Protein 1+ (Negative) Urine Ketones 1+ (Negative) Urine Blood 1+ /uL (Negative) Urine Nitrite Negative (Negative) Urine Bilirubin Negative (Negative) Urine Urobilinogen Normal mg/dL (Negative) Urine Leukocyte Esterase Negative /uL (Negative) Urine RBC 2 /hpf (0 - 3) Urine WBC 1 /hpf (0 - 3) Urine Squamous Epithelial Cells Few /hpf (<5) Urine Bacteria None seen /hpf (None Seen) Urine Hyaline Casts Few /lpf (0 - 2) Urine Mucus Few (None Seen) Urine Glucose Normal mg/dL (Normal) Urine Opiates Screen Neg (NEGATIVE) Urine Fentanyl Screen Neg (NEGATIVE) Urine Barbiturates Screen Neg (NEGATIVE) Urine Phencyclidine Screen Neg (NEGATIVE) Urine Amphetamines Screen Neg (NEGATIVE) Urine Benzodiazepines Screen Neg (NEGATIVE) Urine Cocaine Screen Neg (NEGATIVE) Urine Cannabinoids Screen Neg (NEGATIVE) Troponin I High Sensitivity 47 ng/L (</=54) Hemoglobin A1c 5.6 % A1C (<5.7) Direct Bilirubin 0.5 mg/dL (<0.3) Plasma/Serum Blood Alcohol 5.1 mg/dL (<10) POC Glucose 178 mg/dl (70-106) Other Laboratory Tests 02/25/24 06:13 02/22/24 06:19 Brief Hx & Hospital Course: Hospital cours This 33-year-old male with a past medical history of alcohol abuse was brought to the hospital on 02/21/2024 after an episode of seizure. According to the patient, he stopped drinking alcohol 2 weeks ago and joined alcohol cessation program at a [facility]. However, on 02/20/2023 he had seizure activity, loss consciousness, fell to the ground,hit his chin on the concrete and bit his tongue. When patient regained consciousness he was confused, felt dizzy and had blood in his mouth. Patient also reports of right hand numbness and bilateral leg pain. At the hospital, patient was managed for alcohol withdrawal rhabdomyolysis and electrolytes derangements. For the tongue swelling patient was given numbing like viscous lidocaine, oral chlorhexidine majic solution and Carlos. He also received one dose of solumedrol. With he has been managed on this regimen for the past 3 days. Patient is now clinically stable and clear for discharge. He is tolerating soft mechanical diet and has no pains in his esophagus. tolerate oral intake and it is soft mechanical diet. Examination General Appearance: Alert, Oriented X3, Cooperative Face: --Tongue: less swelling, blood. blood stain and smells. gradually healing wound HEENT: Atraumatic, PERRLA, EOMI, Mucous membrane moist/pink Respiratory: Clear to auscultation, Normal air movement Cardiovascular: Regular rate, Normal S1, Normal S2, No murmurs, no chest wall tenderness Abdominal: NO distention, no tenderness, bowel sounds present, no scars noted Extremities: No clubbing, No cyanosis, No edema, Normal pulses, No tenderness/swelling Skin: No rashes, No breakdown, No significant lesion Neuro: Normal gait, Normal speech, Strength at 5/5 X4 ext, Normal tone, Sensation intact, Cranial nerves 3-12 NL, Reflexes 2+ Psych/Mental Status: Mental status NL, Mood NL Diagnoses Seizure, likely due to alcohol withdrawal Tongue bite, swollen tongue Possible alcohol withdrawal Alcohol use disorder Possible chronic sinusitis Rhabdomyolysis Current smoker Thrombocytopenia Transaminitis Gallbladder sludge Hepatomegaly and Hepatic steatosis Mildhyponatremia Hypochloremia hypokalemia Discharge plan Continue for Chlorhexidine Continue Lidocaine Hcl Continue Al hydrox/mg Tylenol 650 mg Patient advised to see an neurologist regarding the seizures Patient advised to return to the discharge Clinic for reassessment post discharge. Patient advised to alcohol cessation Case and plan discharge plans discussed with Dr. Dumont Condition at Discharge: Good Final Diagnosis/Problems List Seizure, likely due to alcohol withdrawal Tongue bite, swollen tongue Possible alcohol withdrawal Alcohol use disorder Possible chronic sinusitis Rhabdomyolysis Current smoker Thrombocytopenia Transaminitis Gallbladder sludge Hepatomegaly and Hepatic steatosis Mildhyponatremia Hypochloremia hypokalemia Discharge Disposition: Home Discharge Statement: "Patient was advised to return to the ER or call 911 if any headaches, dizziness, shortness of breath, chest pain, abdominal pain, bleeding, fevers, or worsening of medical condition. Patient was counseled about treatment plan, medications, possible side effects, patientverbalized understanding. All questions were answered to the best of my ability. This discharge took greater then 30 minutes in planning, reviewing documentation, counseling the patient, and discussing with other team members." ASSESSMENT ASSESSMENT Assessment MICKEY ACE RESIDENT Feb 26, 2024 14:19
[2024-02-26] MEDS ORDERED: LIDO2SOL18 MT (14:47)
[2024-02-26] MEDS ORDERED: MAGIC MT (14:47)
[2024-02-26] MEDS ORDERED: CHL12OR MT (14:47)
[2024-02-26 15:08] VITALS: BP 130/93; PULSE 78; RESP 17; TEMP 98.4; O2SAT 98
[2024-02-26 16:57] VITALS: BP 144/82; PULSE 77; RESP 19; TEMP 97.9; O2SAT 94
== END 2024-02-26 17:53 | disposition home or self-care (01) | DRG 53 ==
LOC: ER 15:08 → TELE 21:11 → TELE-WESTW 21:11
PROVIDERS: ADMIT Internal Medicine; ATTEND Internal Medicine
DX: R56.9 Unspecified convulsions (principal); D69.6 Thrombocytopenia, unspecified; M62.82 Rhabdomyolysis; E87.1 Hypo-osmolality and hyponatremia; E87.8 Other disorders of electrolyte and fluid balance, not elsewhere classified; J32.9 Chronic sinusitis, unspecified; J45.909 Unspecified asthma, uncomplicated; F10.139 Alcohol abuse with withdrawal, unspecified; F17.200 Nicotine dependence, unspecified, uncomplicated; K76.0 Fatty (change of) liver, not elsewhere classified; E66.9 Obesity, unspecified; E87.6 Hypokalemia; K82.8 Other specified diseases of gallbladder; Z79.899 Other long term (current) drug therapy; Y90.0 Blood alcohol level of less than 20 mg/100 ml
CPT/HCPCS: 36415; 70450; 70486; 76705; 80048; 80053; 80076; 80307; 80320; 81001; 82550; 82746; 82962; 83036; 83735; 84484; 85025; 93005; 99291; G0378; J2003